=== PATIENT | female | born 1985 | race Caucasian/White ===

== ENCOUNTER 2017-05-25 12:36 | Inpatient (IN) | payer OTHER ==
[~2017-05-25] VITALS: Ht 157.5 cm; Wt 68.0 kg
[~2017-05-25 12:36] MED LIST: IBUP-974 PO; IRON65TA11 PO; PREN-385 PO
[2017-05-25] MEDS ORDERED: LACTATED RINGERS 1,000 ML IV SCH (13:06)
[2017-05-25] MEDS ORDERED: NALBUPHINE HYDROCHLORIDE 10 MG/ML VIAL IVP PRN (13:10)
[2017-05-25] MEDS ORDERED: PROMETHAZINE 25 MG/ML VIAL IVP PRN (13:10)
[2017-05-25] MEDS ORDERED: CARBOPROST 250 MCG/ML AMP IM PRN (13:10)
[2017-05-25] MEDS ORDERED: METHYLERGONOVINE 0.2 MG/ML AMP IM PRN (13:10)
[2017-05-25 13:32] LABS: BASOPHILS # (AUTO) 0.1 K/uL (0.00-0.22); BASOPHILS % (AUTO) 0.7 % (0.0-2.0); EOSINOPHILS # (AUTO) 0.2 K/uL (0-0.4); EOSINOPHILS % (AUTO) 1.7 % (0.0-4.0); HEMATOCRIT 34.9 % (36-48); HEMOGLOBIN 11.6 g/dL (12.0-16.0); LYMPHOCYTES # (AUTO) 1.5 K/uL (2.5-16.5); MEAN CORPUSCULAR HEMOGLOBIN 29 pg (27-31); MEAN CORPUSCULAR HGB CONC 33 g/dL (33-37); MEAN CORPUSCULAR VOLUME 87 fL (80-94); MONOCYTES # (AUTO) 0.6 K/uL (0.8-1.0); MONOCYTES % (AUTO) 6.1 % (1.7-9.3); NEUTROPHILS % (AUTO) 77.5 % (42.2-75.2); PLATELET COUNT (AUTO) 237 K/uL (140-450); RED BLOOD CELL COUNT(AUTO) 4.03 MIL/uL (4.20-5.40); RED CELL DISTRIBUTION WIDTH 12.9 % (11.6-13.7); WHITE BLOOD COUNT (AUTO) 10.4 K/uL (4.8-10.8)
[2017-05-25 13:55] LABS: APPEARANCE,URINE CLEAR (CLEAR); BILIRUBIN,URINE NEGATIVE (NEGATIVE); BLOOD, URINE NEGATIVE (NEGATIVE); COLOR,URINE YELLOW (YELLOW); LEUKOCYTE ESTERASE ,URINE NEGATIVE (NEGATIVE); NITRITE, URINE NEGATIVE (NEGATIVE); PH,URINE 5.5 (5.0-9.0); UGLUCOSE NEGATIVE (NEGATIVE)
[2017-05-25 15:14] VITALS: BP 113/66
[2017-05-25] MEDS ORDERED: DINOPROSTONE 10 MG SUPP VG SCH (15:14)
[2017-05-25] MEDS ORDERED: OXYTOCIN 20 UNITS/LR PREMIX 1,000 ML IV SCH (22:00)
[2017-05-26] MEDS ORDERED: OXYTOCIN 20 UNITS/LR PREMIX 1,000 ML IV ONE (02:40)
[2017-05-26] MEDS ORDERED: BUPIVACAINE 0.125%/NS PREMIX 250 ML ONE (08:53)
--- NOTE | 2017-05-26 09:05 | NUR ---
PATIENT HAS BEEN SCREENED AND CATEGORIZED LOW NUTRITION RISK. PATIENT WILL BE SEEN WITHIN 7 DAYS OF ADMISSION. 06/01/[address]
[2017-05-26] MEDS ORDERED: OXYTOCIN 10 UNITS/ML VIAL ONE (12:49)
[2017-05-26] MEDS ORDERED: OXYTOCIN 10 UNITS/ML VIAL IM PRN (13:50)
[2017-05-26] MEDS ORDERED: HYDROcodone/APAP 5/325 MG 1 TAB TAB PO PRN (13:50)
[2017-05-26] MEDS ORDERED: oxyCODONE/APAP 5/325 MG 1 TAB TAB PO PRN (13:50)
[2017-05-26] MEDS ORDERED: BISACODYL 10 MG SUPP RC PRN (13:50)
[2017-05-26] MEDS ORDERED: SODIUM PHOSPHATE 118 ML ENEM RC PRN (13:50)
[2017-05-26] MEDS ORDERED: BENZOCAINE/MENTHOL 20%-0.5% 60 GM CAN TP PRN (13:50)
[2017-05-26] MEDS ORDERED: METHYLERGONOVINE 0.2 MG/ML AMP IM PRN (13:50)
[2017-05-26] MEDS ORDERED: MEASLES, MUMPS, AND RUBELLA 1 VIAL SQVAC PRN (13:50)
[2017-05-26] MEDS ORDERED: WITCH HAZEL 40 PAD PACKAGE TP PRN (13:50)
[2017-05-26] MEDS: IBUPROFEN 600 MG TAB PO PRN (20:59)
[2017-05-26] MEDS ORDERED: TEMAZEPAM 15 MG CAP PO PRN (21:00)
[2017-05-26] MEDS ORDERED: DOCUSATE SOD/SENNA 50/8.6 MG 1 TAB PO SCH (21:00)
[2017-05-27 07:14] LABS: HEMATOCRIT 28.9 % (36-48); HEMOGLOBIN 9.7 g/dL (12.0-16.0)
[2017-05-27] MEDS ORDERED: IBUP-2213 PO (10:16)
[2017-05-27] MEDS: IBUPROFEN 600 MG TAB PO PRN (13:06)
== END 2017-05-27 17:55 | disposition home or self-care (01) | DRG 775 ==
LOC: MFCC 12:36 → EEVIPCON 12:36 → MFCC 05-26 17:30
PROVIDERS: ADMIT Obstetrics & Gynecology; ATTEND Obstetrics & Gynecology
PROC: 10E0XZZ Delivery of Products of Conception, External Approach (ICD-10-PCS; principal; 2017-05-26)
PROC: 3E0P7GC Introduction of Other Therapeutic Substance into Female Reproductive, Via Natural or Artificial Opening (ICD-10-PCS; 2017-05-26)
PROC: 0KQM0ZZ Repair Perineum Muscle, Open Approach (ICD-10-PCS; 2017-05-26)
PROC: 3E0234Z Introduction of Serum, Toxoid and Vaccine into Muscle, Percutaneous Approach (ICD-10-PCS; 2017-05-26)
PROC: 00HU33Z Insertion of Infusion Device into Spinal Canal, Percutaneous Approach (ICD-10-PCS; 2017-05-26)
PROC: 3E0R3CZ (ICD-10-PCS; 2017-05-26)
DX: O69.81X0 Labor and delivery complicated by cord around neck, without compression, not applicable or unspecified (principal); O70.1 Second degree perineal laceration during delivery; Z3A.40 40 weeks gestation of pregnancy; Z37.0 Single live birth; Z23 Encounter for immunization
CPT/HCPCS: 36415; 51702; 59409; 81003; 85018; 85025; 86592; 86886; 86900; 86901; 90715; J2590; J3490; J7120